=== PATIENT | female | born 1960 | race Caucasian/White ===

== ENCOUNTER 2024-12-05 14:36 | Outpatient (OUT) | payer OTHER, SELFPAY ==
--- OUTSIDE RECORDS SUMMARY | 2024-11-22 11:30 | XMS_ITS | Encounter Summary ---
Author Organization [facility] tem Address [id number] [address] [place] [address] Care Team Providers Care Vocational Nurse Name Role Phone Shirin Tellez Primary Care Provider Reason for Visit * Reason Comments Fatigue Onset two weeks ago daily diarrhea, rash on chest, interment pain in lower right abdominal wraps around the best, some nausea but no vomiting. Encounter Details Date Type Department Care Team (Late st Contact Info) Description 11/22/2024 11:30 AM EDT [facility] [address] [place] [address] [address] [place] [address] Kaveh Merrill APRN-CNP [address] [place] [phone] Intrinsic atopic dermatitis (Primary Dx); Lightheaded; Right lower quadrant abdominal pain; Diarrhea, unspecified type Social History Tobacco Use Types Packs/Day Years Used Date Smoking Tobacco: Never Smokeless Tobacco: Never Alcohol Use Standard Drinks/Week Comments Not Currently 0 (1 standard drink = 0.6 oz pur e alcohol) AUDIT-C Answer Date Recorded Frequency of Alcohol Consumption Monthly or less 01/08/2020 Average Number of Drinks Not on file 020 Frequency of Binge Drinking Less than monthly PHQ-2 Answer Date Recorded Total Score 0 11/22/2024 PRAPARE - Transportation Answer Date Re corded In the past 12 months, has l ack of transportation kept you from medical appointments or from getting medications? No 12/19 In the past 12 months, has l ack of transportation kept you from meetings, work, or from getting things needed for daily living? No 01/05/2023 Housing Instability Answer Date Recorde d Are you worried or concerned that in the next two months you may not have stable housing that you own, rent or stay in as a part of a household? No 01/05/2023 Childcare Answer Date Recorded Childcare Unknown 11/30/2018 Employment Answer Date Recorded Employment Unknown 11/30/2018 Hunger Screening Answer Date Recorded Within the past 12 months we worried whether our food would run out before we got money to buy more. Never True 11/22/2024 Within the past 12 months th e food we bought just didn't last and we didn't have money to get more. Never True 11/22/2024 Purpose - Life Answer Date Recorded Purpose and direction in life Unknown Comments No Sex and Gender Information Value Date Recorded Sex Assigned at Not on file Legal Sex Female 9:59 PM EDT Gender Identity Not on file Sexual Orientation Not on file documented as of this encounter Last Filed Vital Signs Vital Sign Reading Time Taken Comments Blood Pressure 116/80 11/22/2024 11:28 AM EDT Pulse 75 11/22/2024 11:28 AM EDT Temperature 37 C (98.6 F) 11/22/2024 11:28 AM EDT Respiratory Rate - - Oxygen Saturation 97% 11/22/2024 11:28 AM EDT Inhaled Oxygen Concentration - - Weight 69.4 kg (153 lb) 11/22/2024 11:28 AM EDT Height 157.5 cm (5' 2.01 ) 11/22/2024 11:28 AM E DT Body Mass Index 27.98 11/22/2024 11:28 AM EDT documented in this encounter Functional Status * Over the last 2 weeks, how often have you been bothered by any of the following problems? Question Answer Date of Assessment Author Feeling nervous, anxious, or on edge 0 11/22/2024 11:29 AM EDT Jaiden Moore CMA Not being able to stop or control worrying 0 11/22/2024 11:29 AM EDT Jaiden Moore CMA documented as of this encounter Progress Notes * Kaveh Merrill APRN-DIVISION CHIEF - 11/22/2024 11:30 AM EDT Images from the original note were not included. [facility] [address] [facility] [phone] Patient: Verito Montes Date of : 1960 Encounter Date: 11/22/2024 History of Present Illness: The patient is a 64 y.o. female, patient, and is here for Chief Complaint Patient presents with Fatigue Onset two weeks ago daily diarrhea, rash on chest, interment pain in lower right abdominal wraps around the best, some nausea but no vomiting. . Patient presents to the office today for a rash. She is an established patient of my colleague Shirin Tellez. She has a rash on her chest area. Symptoms started yesterday. She has been using a tanning salon, last use 2 days ago. Denies any known exposures to anything. The rash does not really itchmuch.She has also had diarrhea for two weeks and pain in her right lower quadrant area Which is improving overall. She is also having lightheadedness that comes and go. This has also gone on for a couple of weeks now. Symptoms only last for a few seconds and then resolve. She has never had this. She is also having shortness of breath. She does have asthma. She is on Vesicare which is new, mobic and Cymbalta are new. She has been on these for one year now. Fatigue Associated symptoms include abdominal pain, fatigue and a rash (Chest area). Pertinent negatives include no arthralgias, chest pain, chills, coughing, fever, numbness, sore throat or vomiting. Past Medical, Family, and Social History Update: The following portions of the patient's history were reviewed and updated as appropriate: allergies, current medications, past family history, past medical history, past social history, past surgicalhistory and problem list. Past Medical History: Diagnosis Date Asthma Cataract Cervical cancer (CMS-HCC) Constipation 06/04/2016 COVID-19 Frequency of micturition 03/29/2018 Microcytic anemia 06/04/2016 Microscopic hematuria 03/29/2018 Thalassemia 02/03/2018 Uterine cancer ([facility]) Past Surgical History: Procedure Laterality Date CATARACT EXTRACTION 2012 COLONOSCOPY 2011&2013 COLONOSCOPY POLYPECTOMY N/A 11/11/2021 Performed by Jason Coto MD at [facility] ENDOSCOPY DECOMPRESSION FASCIOTOMY LEG EGD with biospies N/A 05/05/2018 Performed by Jason Coto MD at [facility] ENDOSCOPY HYSTERECTOMY 2001 DC REMOVAL OF OVARY(S) 2002 TOTAL ABDOMINAL HYSTERECTOMY W/ BILATERAL SALPINGOOPHORECTOMY Current Outpatient Medications Medication Sig Dispense Refill albuterol (PROVENTIL HFA;VENTOLIN HFA) 90 mcg/actuation inhaler Inhale 2 puffs every 6 (six) hours as needed for wheezing. 18 g 11 ascorbic acid, vitamin C, (VITAMIN C) 250 mg tablet Take 2 tablets (500 mg total) by mouth in the morning. CALCIUM CITRATE ORAL Take by mouth. cranberry 400 mg capsule Take 1 capsule (400 mg total) by mouth in the morning. DULoxetine (CYMBALTA) 20 mg capsule Take one capsule by mouth once in the morning 90 capsule 1 estradioL (ESTRACE) 1 mg tablet TAKE 1 TABLET BY MOUTH EVERY MORNING 90 tablet 3 folic acid (FOLVITE) 1 mg tablet Take 800 mcg by mouth in the morning. magnesium oxide (MAG-OX) 400 mg tablet Take 1 tablet (400 mg total) by mouth in the morning. meloxicam (MOBIC) 7.5 mg tablet Take 1 tablet (7.5 mg total) by mouth in the morning. 90 tablet 1 multivit-min/iron/folic/lutein (CENTRUM SILVER WOMEN ORAL) Take by mouth. polyethylene glycol (GLYCOLAX) 17 gram/dose powder Take 17 g by mouth in the morning. 510 g 2 solifenacin (VESICARE) 5 mg tablet Take 1 tablet (5 mg total) by mouth in the morning. 90 tablet 3 tiZANidine (ZANAFLEX) 2 mg tablet One tab at 8:00 p.m.each night 90 tablet 1 triamcinolone (KENALOG) 0.1 % cream Apply 1 Application topically in the morning and 1 Application before bedtime. 80 g 1 No current facility-administered medications for this visit. (All medications reviewed and updated by provider since last office visit or hospitalization) Allergies: Patient has no known allergies. Tobacco History: Social History Tobacco Use Smoking Status Never Smokeless Tobacco Never (If patient a smoker, smoking cessation counseling offered) Social History: Social History Substance and Sexual Activity Alcohol Use Not Currently Depression PHQ-2 Over the last 2 weeks, how often have you been bothered by any of the following problems: Little interest or pleasure in doing things: Not at all Feeling down, depressed, or hopeless: Not at all Total Score: 0 Fall Risk Assessment Screening Questions: Review of Systems: Review of Systems Constitutional: Positive for fatigue. Negative for chills and fever. HENT: Negative for ear pain and sore throat. Eyes: Negative for pain and visual disturbance. Respiratory: Positive for shortness of breath. Negative for cough. Cardiovascular: Negative for chest pain and palpitations. Gastrointestinal: Positive for abdominal pain and diarrhea. Negative for vomiting. Genitourinary: Negative for dysuria and hematuria. Musculoskeletal: Negative for arthralgias and back pain. Skin: Positive for rash (Chest area). Negative for color change. Neurological: Positive for dizziness and light-headedness. Negative for seizures, syncope and numbness. All other systems reviewed and are negative. Physical Exam: BP 116/80 (BP Site: Left Arm, BP Postition: Sitting, BP CUFF SIZE: M (9-13 inches)) Pulse 75 Temp 37 ??C (98.6 ??F) (Oral) Ht 157.5 cm (5' 2.01 ) Wt 69.4 kg (153 lb) SpO2 97% BMI 27.98 kg/m?? Physical Exam Vitals and nursing note reviewed. Constitutional: General: She is not in acute distress. Appearance: Normal appearance. She is not ill-appearing, toxic-appearing or diaphoretic. HENT: Head: Normocephalic and atraumatic. Nose: Nose normal. Eyes: General: Right eye: No discharge. Left eye: No discharge. Conjunctiva/sclera: Conjunctivae normal. Cardiovascular: Rate and Rhythm: Normal rate and regular rhythm. Pulses: Normal pulses. Heart sounds: Normal heart sounds. No murmur heard. No friction rub. Pulmonary: Effort: Pulmonary effort is normal. No respiratory distress. Breath sounds: Normal breath sounds. No stridor. No wheezing or rhonchi. Abdominal: General: Abdomen is flat. There is no distension. Palpations: Abdomen is soft. Tenderness: There is no abdominal tenderness. Musculoskeletal: General: Normal range of motion. Cervical back: Normal range of motion. Skin: General: Skin is warm and dry. Capillary Refill: Capillary refill takes less than 2 seconds. Comments: Erythematous macular rash Neurological: General: No focal deficit present. Mental Status: She is alert and oriented to person, place, and time. Psychiatric: Mood and Affect: Mood normal. Behavior: Behavior normal. Thought Content: Thought content normal. Judgment: Judgment normal. Assessment and Plan: 1. Intrinsic atopic dermatitis - triamcinolone (KENALOG) 0.1 % cream; Apply 1 Application topically in the morning and 1 Application before bedtime. Dispense: 80 g; Refill: 1 Patient had a lot of complaints today that are not really correlated to each other. Main goal of the appointment was the rash on her chest area. I am going to treat this with triamcinolone cream as prescribed. If it does not improve advised her to please let me know. In regards to the lightheadedness abdominal pain, diarrhea, the shortness breath, will check some labs along with a urinalysis and call with results. Otherwise I recommend following up with her PCP of the symptoms do not improve. 2. Lightheaded - CBC auto differential - Comprehensive metabolic panel - Vitamin D 25 hydroxy - Vitamin B12 - Iron and TIBC - Urinalysis (clean catch); Future 3. Right lower quadrant abdominal pain - CBC auto differential - Comprehensive metabolic panel - Vitamin D 25 hydroxy - Vitamin B12 - Iron and TIBC - Urinalysis (clean catch); Future 4. Diarrhea, unspecified type - CBC auto differential - Comprehensive metabolic panel - Vitamin D 25 hydroxy - Vitamin B12 - Iron and TIBC Body mass index is 27.98 kg/m??. Patient noted to have elevated BMI and the following intervention(s) were applied encouragement to exercise and prescribed diet education. Follow-up: Patient verbalized understanding of POC/instructions at this time and denies any questions. This note was made utilizing M*Modal dictation. Although every attempt was made to limit grammatical errors, please excuse any errors in spelling or grammar. ERIKA Saenz APRN-CNP 11/22/24 1450 documented in this encounter Plan of Treatment Upcoming Encounters Date Type Department Care Team (Late st Contact Info) Description 12/12/2024 8:00 AM EDT Office Visit [facility] Department of [address] [place] [phone] Alisia Arriola PA [address] [facility] [address] [place] [address] 02/12/2025 8:15 AM EDT Office Visit [facility] [address] [place] [phone] Luz Montalvo MD [address] [place] [phone] 8:00 AM EST Office Visit [facility] [address] [place] [address] [address] [place] [phone] Shirin Tellez, HRIS MANAGER-DIVISION CHIEF [address] [place] [phone] Scheduled Orders Name Type Priority Associated Diagnoses Orde r Schedule Urinalysis (clean catch) Lab Routine Lightheaded Right lower quadrant abdominal pain 1 Occurrences starting 11/22/2024 until 11/22/2025 documented as of this encounter Procedures Procedure Name Priority Date/Time Associated Diagnosis Comments CBC WITH AUTO DIFFERENTIAL Routine 11/22/2024 11:55 AM EDT Lightheaded Right lower quadrant abdominal pain Diarrhea, unspecified type IRON AND TIBC Routine 11/22/2024 11:55 AM EDT Lightheaded Right lower quadrant abdominal pain Diarrhea, unspecified type VITAMIN D 25 HYDROXY Routine 11/22/2024 11:55 AM EDT Lightheaded Right lower quadrant abdominal pain Diarrhea, unspecified type VITAMIN B12 Routine 11/22/2024 11:55 AM EDT Lightheaded Right lower quadrant abdominal pain Diarrhea, unspecified type COMPREHENSIVE METABOLIC PANEL Routine 11/22/2024 11:55 AM EDT Lightheaded Right lower quadrant abdominal pain Diarrhea, unspecified type documented in this encounter Results * (ABNORMAL) Iron and TIBC (11/22/2024 11:55 AM EDT) IRON 57 50 - 170 ug/dL 11/22/2024 3:47 PM EDT [facility] TRANSFERRIN 151(L) 168 - 336 mg/dL 11/22/2024 3:47 PM EDT [facility] IRON BINDING 211(L) 250 - 425 ug/dL 11/22/2024 3:47 PM EDT [facility] IRON SATURATION 27 15 - 50 % SATURATION 11/22/2024 3:47 PM EDT [facility] Blood Venous blood / Unknown 11/22/2024 11:55 AM EDT 11/22/2024 11:56 AM EDT us Kaveh Merrill HRIS MANAGER-DIVISION CHIEF LAB BLOOD ORDERABLES Kathleen l Result [facility] [address] [place] [address], [place] [phone] * (ABNORMAL) Vitamin B12 (11/22/2024 11:55 AM EDT) VITAMIN B12 1,431(H) 180 - 914 pg/mL 11/22/2024 4:07 PM EDT [facility] Blood Venous blood / Unknown 11/22/2024 11:55 AM EDT 11/22/2024 11:56 AM EDT us Kaveh Merrill HRIS MANAGER-DIVISION CHIEF LAB BLOOD ORDERABLES Kathleen l Result [facility] [address] [place] [address], [place] [phone] * Vitamin D 25 hydroxy (11/22/2024 11:55 AM EDT) [facility] VITAMIN D 25 HYD TOT 41.1 30.0 - 100.0 ng/mL 11/22/2024 4:10 PM EDT [facility] Blood Venous blood / Unknown 11/22/2024 11:55 AM EDT 11/22/2024 11:56 AM EDT [facility] - 11/22/2024 4:10 PM EDT Vitamin D status 25 [place] Vitamin D Deficiency <20 ng/mL Insufficiency 20-29 ng/mL Sufficiency 30-100 ng/mL Toxicity >100 ng/mL NOTE: A pediatric reference range has not been established by the social science research assistant of this kit. The [place] [employer] recommends a Vitamin D level of = or >20ng/mL in infants and children. us Kaveh Merrill HRIS MANAGER-[facility] LAB BLOOD ORDERABLES Kathleen tam Result [facility] [address] [place] [address], * (ABNORMAL) Comprehensive metabolic panel (11/22/2024 11:55 AM EDT) [facility] SODIUM 141 134 - 146 mmol/L 11/22/2024 3:47 PM EDT [facility] POTASSIUM 3.4(L) 3.5 - 5.0 mmol/L 11/22/2024 3:47 PM EDT [facility] CHLORIDE 104 98 - 109 mmol/L 11/22/2024 3:47 PM EDT [facility] CARBON DIOXIDE 29 22 - 32 mmol/L 11/22/2024 3:47 PM EDT [facility] ANION GAP 8 5 - 15 mmol/L 11/22/2024 3:47 PM EDT [facility] BLOOD UREA NITROGEN 16 5 - 27 mg/dL 11/22/2024 3:47 PM EDT [facility] CREATININE 0.69 0.40 - 1.00 mg/dL 11/22/2024 3:47 PM EDT [facility] Comment:METHOD TRACEABLE TO IDCA STANDARD GLUCOSE 132(H) 65 - 99 mg/dL 11/22/2024 3:47 PM EDT [facility] CALCIUM 9.3 8.5 - 10.5 mg/dL 11/22/2024 3:47 PM EDT [facility] TOTAL PROTEIN 6.4 6.0 - 8.0 g/dL 11/22/2024 3:47 PM EDT [facility] ALBUMIN 4.2 3.2 - 5.3 g/dL 11/22/2024 3:47 PM EDT [facility] ALKALINE PHOSPHATASE 66 39 - 130 U/L 11/22/2024 3:47 PM EDT [facility] AST 21 <=41 U/L 11/22/2024 3:47 PM EDT [facility] ALT 17 <=31 U/L 11/22/2024 3:47 PM EDT [facility] BILIRUBIN,TOTAL 0.7 0.3 - 1.2 mg/dL 11/22/2024 3:47 PM EDT [facility] EGFR Non-Race Dependent >90 >=60 ml/min/1.7 3sq.m 11/22/2024 3:47 PM EDT [facility] Comment: Reported eGFR is based on the CKD-EPI 2020 equation that does not use a race coefficient. Blood Venous blood / Unknown 11/22/2024 11:55 AM EDT 11/22/2024 11:56 AM EDT us Kaveh Merrill HRIS MANAGER-DIVISION CHIEF LAB BLOOD ORDERABLES Kathleen l Result [facility] [address] [place] [address], [place] [phone] * (ABNORMAL) CBC auto differential (11/22/2024 11:55 AM EDT) [facility] Signature WBC 7.0 4 - 11 x10E9/L 11/22/2024 7:37 PM EDT [facility] RBC Count 5.22(H) 3.8 - 5.2 X10E12/L 11/22/2024 7:37 PM EDT [facility] Hemoglobin 10.7(L) 11.7 - 15.5 g/dL 11/22/2024 7:37 PM EDT [facility] Hematocrit 33.5(L) 35 - 47 % 11/22/2024 7:37 PM T [facility] MCV 64(L) 80 - 100 fL 11/22/2024 7:37 PM EDT [facility] MCH 20.5(L) 27 - 34 pg 11/22/2024 7:37 PM EDT [facility] MCHC 32.0 32 - 36 g/dL 11/22/2024 7:37 PM EDT [facility] RDW 16.3(H) 11.5 - 15 % 11/22/2024 7:37 PM EDT [facility] Platelet Count 252 150 - 450 X10E9/L 11/22/2024 7:37 PM EDT [facility] MPV 9.0 7 - 12 fL 11/22/2024 7:37 PM EDT [facility] Neutrophils Relative 60.1 % 11/22/2024 7:37 PM EDT [facility] Comment:This is an appended report. These results have been appended to a previously preliminary verified report. Lymphocytes Relative 30.0 % 11/22/2024 7:37 PM EDT [facility] Comment:This is an appended report. These results have been appended to a previously preliminary verified report. Monocytes Relative 8.2 % 11/22/2024 7:37 PM EDT [facility] Comment:This is an appended report. These results have been appended to a previously preliminary verified report. Eosinophils Relative 1.3 % 11/22/2024 7:37 PM T [facility] Comment:This is an appended report. These results have been appended to a previously preliminary verified report. Basophils Relative 0.4 % 11/22/2024 7:37 PM [facility] Comment:This is an appended report. These results have been appended to a previously preliminary verified report. Neutrophils Absolute (A) 4.2 1.5 - 6.6 10*3/uL 11/22/2024 7:37 PM [facility] Comment:This is an appended report. These results have been appended to a previously preliminary verified report. Lymphocytes Absolute 2.1 1.0 - 3.5 10*3/uL 11/22/2024 7:37 PM [facility] Comment:This is an appended report. These results have been appended to a previously preliminary verified report. Monocytes Absolute 0.6 0.0 - 0.9 10*3/uL 11/22/2024 7:37 PM [facility] Comment:This is an appended report. These results have been appended to a previously preliminary verified report. Eosinophils Absolute 0.1 0.0 - 0.4 10*3/uL 11/22/2024 7:37 PM [facility] Comment:This is an appended report. These results have been appended to a previously preliminary verified report. Basophils Absolute 0.0 0.0 - 0.2 10*3/uL 11/22/2024 7:37 PM [facility] Comment:This is an appended report. These results have been appended to a previously preliminary verified report. RBC Fragments 1+ 11/22/2024 7:37 PM [facility] Comment:This is an appended report. These results have been appended to a previously preliminary verified report. Elliptocytes 1+ 11/22/2024 7:37 PM [facility] Comment:This is an appended report. These results have been appended to a previously preliminary verified report. Differential Type AUTOMATED DIFFERENTIAL 11/22/2024 7:37 PM [facility] Comment:This is an appended report. These results have been appended to a previously preliminary verified report. Blood Venous blood / Unknown 11/22/2024 11:55 AM EDT 11/22/2024 11:56 AM EDT us Kaveh Merrill APRN-MOHINDER LAB BLOOD ORDERABLES Kathleen l Result [facility] [address] [place] [address], [place] [phone] documented in this encounter Visit Diagnoses Diagnosis Intrinsic atopic dermatitis- Primary Lightheaded Dizziness and giddiness Right lower quadrant abdominal pain Diarrhea, unspecified type documented in this encounter Additional Health Concerns Assessment Noted Time PHQ-9 Depression Total Score: 0 11/23/19 25 11:29 AM EDT A Body Mass Index follow-up plan has been documented for the patient 11/22/2024 2:50 PM EDT documented as of this encounter Care Teams Vocational Nurse Relationship Specialty Start Date End Date Shirin Tellez APRN-CNP [address] [place] [address] PCP - General Family Medicine 06/17/20 documented as of this encounter
--- OUTSIDE RECORDS SUMMARY | 2024-12-05 14:45 | XMS_ITS | Clinical Summary ---
Author Organization [facility] Address [address] [place] [address] [address] Prov[address] Care [address] Freight Brake Coupler Name Role Phone Unavailable Primary Care Provider Unavailabl e Social History Tobacco Use Types Packs/Day Years Used Date Smoking Tobacco: Never Assessed Comments Unknown Sex and Gender Information Value Date Recorded Sex Assigned at Not on file Legal Sex Female 9:54 PM EDT Gender Identity Not on file Sexual Orientation Not on file Plan of Treatment Not on file
--- OUTSIDE RECORDS SUMMARY | 2024-12-05 14:45 | XMS_ITS | Encounter Summary ---
Author Organization [employer] s tem Address [id number] [address] [place] [address] Care Team Providers Care Confectionery Laboratory Manager Name Role Phone Shirin Tellez APRN-GAS LEAK INSPECTOR HELPER Primary Care Provider Encounter Details Date Type Department Care Team (Latest Contact Info) Description 11/22/2024 Travel Social History Tobacco Use Types Packs/Day Years [...] on file documented as of this encounter Functional Status * Over the last 2 weeks, how often have you been bothered by any of the following problems? Question Answer Date of Assessment Author Feeling nervous, anxious, or on edge 0 11/22/2024 11:29 AM EDT Jaiden Moore CMA Not being able to stop or control worrying 0 11/22/2024 11:29 AM EDT Jaiden Moore CMA documented as of this encounter Plan of Treatment Upcoming Encounters Date Type Department Care Team (Late st Contact Info) Description 12/12/2024 8:00 AM EDT Office Visit [facility] Department of [address] [phone] Alisia Arriola PA [address] [place], [place] [phone] 02/12/2025 8:15 AM EDT Office Visit [facility] [address] [place] [phone] Luz Montalvo MD [address] [place] [address] 2025 8:00 AM EST Office Visit [facility] [address] [place] [address] [address] [place] [phone] Shirin Tellez, AMALGAMATOR-GAS LEAK INSPECTOR HELPER [address] [place] [address] documented as of this encounter Visit Diagnoses Not on filedocumented in this encounter Additional Health Concerns Assessment Noted Time PHQ-9 Depression Total Score: 0 11/23/19 25 11:29 AM EDT A Body Mass Index follow-up plan has been documented for the patient 11/22/2024 2:50 PM EDT documented as of this encounter Care Teams Confectionery Laboratory Manager Relationship Specialty Start Date End Date Shirin Tellez, AMALGAMATOR-GAS LEAK INSPECTOR HELPER [address] [place] [address] PCP - General Family Medicine 06/17/20 documented as of this encounter
--- OUTSIDE RECORDS SUMMARY | 2024-12-05 14:45 | XMS_ITS | Clinical Summary ---
Author Organization [employer] tem Address [facility] [place]-[id number] [address] [place] [address] Care Team Providers Care Loader Technician Name Role Phone Shirin Tellez APRN-INDUSTRIAL RECRUITER Primary Care Provider Allergies No known active allergies Medications folic acid (FOLVITE) 1 mg tablet Take 800 mcg by mouth in the morning. Active CALCIUM CITRATE ORAL Take by mouth. Activ e magnesium oxide (MAG-OX) 400 mg tablet Take 1 tablet (400 mg total) by mouth in the morning. Active cranberry 400 mg capsule Take 1 capsule (400 mg total) by mouth in the morning. Active multivit-min/iro n/folic/lutein (CENTRUM SILVER WOMEN ORAL) Take by mouth. Act pedro ascorbic acid, vitamin C, (VITAMIN C) 250 mg tablet Take 2 tablets (500 mg total) by mouth in the morning. Active polyethylene glycol (GLYCOLAX) 17 gram/dose powderIndication s:Constipation, unspecified constipation type Take 17 g by mouth in the morning. 510 g 2 3 Active solifenacin (VESICARE) 5 mg tabletIndication s:Urgency incontinence Take 1 tablet (5 mg total) by mouth in the morning. 90 tablet 3 4 Active albuterol (PROVENTIL HFA;VENTOLIN HFA) 90 mcg/actuation inhalerIndicatio ns:Mild intermittent asthma without complication Inhale 2 puffs every 6 (six) hours as needed for wheezing. 18 g 11 4 Active estradioL (ESTRACE) 1 mg tablet TAKE 1 TABLET BY MOUTH EVERY MORNING 90 tablet 3 5 Active meloxicam (MOBIC) 7.5 mg tabletIndication s:Fibromyalgia Take 1 tablet (7.5 mg total) by mouth in the morning. 90 tablet 1 5 Active tiZANidine (ZANAFLEX) 2 mg tabletIndication s:Fibromyalgia One tab at 8:00 p.m.each night 90 tablet 1 5 Active DULoxetine (CYMBALTA) 20 mg capsuleIndicatio ns:Fibromyalgia Take one capsule by mouth once in the morning 90 capsule 1 5 Active triamcinolone (KENALOG) 0.1 % creamIndications :Intrinsic atopic dermatitis Apply 1 Application topically in the morning and 1 Application before bedtime. 80 g 1 5 Active Active Problems Problem Noted Date Diagnosed Date History of 2019 novel coronavirus disease (COVID -19) 06/17/2020 Beta thalassemia trait 04/26/2018 Thalassemia 02/03/2018 Microcytic anemia 06/04/2016 Asthma 06/04/2016 Encounters Date Type Department Care Team Description 11/22/2024 11:30 AM EDT Office Visit [facility] [place] [phone] Kaveh Merrill, CASH CONTROLLER-INDUSTRIAL RECRUITER Intrinsic atopic dermatitis (Primary Dx); Lightheaded; Right lower quadrant abdominal pain; Diarrhea, unspecified type 11/22/2024 Travel 09/25/2024 11:31 AM EDT - 09/25/2024 11:59 PM EDT Hospital Encounter [facility] [address] [place] [address] Visit for screening mammogram Discharge Disposition: Home 09/25/2024 Travel 09/12/2024 Orders Only [facility]Gynecolo gy [address] [place] [address] Ness Kruger, NATA Visit for screening mammogram (Primary Dx) from Last 3 Months Immunizations Immunization Administration Dates Next Due COVID-19, mRNA, LNP-S, PF, 1 00mcg/0.5mL Dose 11/06/2020,10/09/2020 H1N1 Inj 07/01/2009 Hepatitis B 11/07/2002,06/09/2002,05/11/2002 Influenza (IM) Preservative Free 03/24/2011 PPD Test 05/13/2018,05/02/2018,06/15/2017 Tdap 05/11/2002 Tetanus 12/02/2011 Family History Medical History Relation Name Comments Asthma Daughter Ness Montes No Known Problems Father Cancer Maternal Aunt 1 Caitlin Mckenzie Cervical cancer Maternal Aunt 1 Caitlin Mckenzie Colon cancer Maternal Aunt 1 Caitlin Mckenzie Cervical cancer Maternal Aunt 2 Hay Cancer Maternal Uncle Max Lumbardo Colon cancer Maternal Uncle Max Lumbardo Prostate cancer Maternal Uncle Max Lumbardo Hypertension Mother a-fib Stroke Mother a-fib Breast cancer Niece had bilateral mastectomy Cancer Paternal Aunt Diabetes Sister Jazz[employer] Champion Hypertension Sister Jazz[employer] Champion Perry Breast Cancer Neg Hx Brain cancer Neg Hx Breast Ca Additional Onset Neg Hx Endometrial cancer Neg Hx Kidney cancer Neg Hx Other Neg Hx thalassemia Ovarian cancer Neg Hx Pancreatic cancer Neg Hx Rectal cancer Neg Hx Stomach cancer Neg Hx Uterine cancer Neg Hx Relation Name Status Comments Brother a-fib Alive Daughter Ness Montes Father Maternal Aunt 1 Caitlin Mckenzie Alive Maternal Aunt 2 Hay Maternal Uncle Max Lumbardo Mother a-fib Niece Alive Paternal Aunt Sister Jazz[employer] Champion Alive Social History Tobacco Use Types Packs/Day Years [...] on file Sexual Orientation Not on file Last Filed Vital Signs Vital Sign Reading Time Taken Comments Blood Pressure 116/80 11/22/2024 11:28 AM EDT Pulse 75 11/22/2024 11:28 AM EDT Temperature 37 C (98.6 F) 11/22/2024 11:28 AM EDT Respiratory Rate 18 07/13/2024 8:27 AM EST Oxygen Saturation 97% 11/22/2024 11:28 AM EDT Inhaled Oxygen Concentration - - Weight 69.4 kg (153 lb) 11/22/2024 11:28 AM EDT Height 157.5 cm (5' 2.01 ) 11/22/2024 11:28 AM E DT Body Mass Index 27.98 11/22/2024 11:28 AM EDT Plan of Treatment Upcoming Encounters Date Type Department Care Team (Late st Contact Info) Description 12/12/2024 8:00 AM EDT Office Visit [facility] Department of [address] [phone] Alisia Arriola PA [address] [place] [address] [address] [place] [phone] 02/12/2025 8:15 AM EDT Office Visit [facility] [address] [place] [phone] Luz Montalvo MD [address] [place] [address] [place] [address] 2025 8:00 AM EST Office Visit [facility] [address] [facility] [address] [place] [phone] Shirin Tellez, CASH CONTROLLER-INDUSTRIAL RECRUITER [address] [place] [address] Health Maintenance Due Date Last Done Comments DTaP,Tdap and Td Vaccines (2 - Td or Tdap) 05/11/2012 05/11/2002 COVID-19 Vaccine (2023-2 5 season) 2024 11/06/2020, 10/09/2020 Fall Risk Screening 2024 Colon Cancer Screening 3 Yea r Cologuard 2025 2022, 06/16/2018 Mammogram 09/25/2025 09/25/2024, 08/19, 05/23/2022, Additional history exists Adult BMI Follow Up Plan 11/22/2025 11/22/2024 Adult BMI Screening 11/22/2025 11/22/2024 Depression Screening 11/22/2025 11/22/2024 Tobacco Screening 11/22/2025 11/22/2024 Influenza Vaccine Discontinued 03/24/2011, 07/01/2009 Pap Smear Discontinued 05/10/2023, 04/21, 2021, Additional history exists Zoster (Shingles) Vaccine Discontinued Medical Devices Not on file Procedures Procedure Name Priority Date/Time Associated Diagnosis Comments IRON AND TIBC Routine 11/22/2024 11:55 AM [...] lower quadrant abdominal pain Diarrhea, unspecified type CBC WITH AUTO DIFFERENTIAL Routine 11/22/2024 11:55 AM EDT Lightheaded Right lower quadrant abdominal pain Diarrhea, unspecified type MAMM SCREENING BILATERAL W CAD Routine 09/25/2024 11:55 AM EDT Visit for screening mammogram PAP SMEAR Routine 05/10/2023 8:19 AM EST Encounter for gynecological examination HM COLOGUARD Routine 06/16/2018 from Last 3 Months or Most Recently Relevant to Health Maintenance Results * (ABNORMAL) CBC auto differential (11/22/2024 11:55 AM EDT) WBC 7.0 4 - 11 x10E9/L 11/22/2024 7:37 PM EDT [facility] RBC Count 5.22(H) 3.8 - 5.2 X10E12/L 11/22/2024 7:37 [address] ED[address] [facility] Hemoglobin 10.7(L) 11.7 - 15.5 g/dL 11/22/2024 7:37 [address] ED[address] [facility] Hematocrit 33.5(L) 35 - 47 % 11/22/2024 7:37 PM EDT [facility] MCV 64(L) 80 - 100 fL 11/22/2024 7:37 PM EDT [facility] MCH 20.5(L) 27 - 34 pg 11/22/2024 7:37 PM EDT [facility] MCHC 32.0 32 - 36 g/dL 11/22/2024 7:37 PM EDT [facility] RDW 16.3(H) 11.5 - 15 % 11/22/2024 7:37 PM EDT [facility] Platelet Count 252 150 - 450 X10E9/L 11/22/2024 7:[address] [facility] MPV 9.0 7 - 12 fL 11/22/2024 7:[address] [facility] Neutrophils Relative 60.1 % 11/22/2024 7:[address] [facility] Comment:This is an appended report. These results have been appended to a previously preliminary verified report. Lymphocytes Relative 30.0 % 11/22/2024 7:[address] [facility] Comment:This is an appended report. These results have been appended to a previously preliminary verified report. Monocytes Relative 8.2 % 11/22/2024 7:[address] [facility] Comment:This is an appended report. These results have been appended to a previously preliminary verified report. Eosinophils Relative 1.3 % 11/22/2024 7:[address] [facility] Comment:This is an appended report. These results have been appended to a previously preliminary verified report. Basophils Relative 0.4 % 11/22/2024 7:[address] [facility] Comment:This is an appended report. These results have been appended to a previously preliminary verified report. Neutrophils Absolute (A) 4.2 1.5 - 6.6 10*3/uL 11/22/2024 7:[address] [facility] Comment:This is an appended report. These results have been appended to a previously preliminary verified report. Lymphocytes Absolute 2.1 1.0 - 3.5 10*3/uL 11/22/2024 7:[address] [facility] Comment:This is an appended report. These results have been appended to a previously preliminary verified report. Monocytes Absolute 0.6 0.0 - 0.9 10*3/uL 11/22/2024 7:[address] [facility] Comment:This is an appended report. These results have been appended to a previously preliminary verified report. Eosinophils Absolute 0.1 0.0 - 0.4 10*3/uL 11/22/2024 7:[address] [facility] Comment:This is an appended report. These results have been appended to a previously preliminary verified report. Basophils Absolute 0.0 0.0 - 0.2 10*3/uL 11/22/2024 7:37 PM EDT [facility] Comment:This is an appended report. These results have been appended to a previously preliminary verified report. RBC Fragments 1+ 11/22/2024 7:37 PM EDT [facility] Comment:This is an appended report. These results have been appended to a previously preliminary verified report. Elliptocytes 1+ 11/22/2024 7:37 PM EDT [facility] Comment:This is an appended report. These results have been appended to a previously preliminary verified report. Differential Type AUTOMATED DIFFERENTIAL 11/22/2024 7:37 PM EDT [facility] Comment:This is an appended report. These results have been appended to a previously preliminary verified report. Blood Venous blood / Unknown 11/22/2024 11:55 AM EDT 11/22/2024 11:56 AM EDT us Kaveh Merrill CASH CONTROLLER-INDUSTRIAL RECRUITER LAB BLOOD ORDERABLES Kathleen l Result [facility] [address] [place] [address], * (ABNORMAL) Iron and TIBC (11/22/2024 11:55 AM EDT) IRON 57 50 - 170 ug/dL 11/22/2024 3:47 PM EDT [facility] TRANSFERRIN 151(L) 168 - 336 mg/dL 11/22/2024 3:47 PM EDT [facility] IRON BINDING 211(L) 250 - 425 ug/dL 11/22/2024 3:47 PM EDT [facility] IRON SATURATION 27 15 - 50 % SATURATION 11/22/2024 3:47 PM EDT [facility] Blood Venous blood / Unknown 11/22/2024 11:55 AM EDT 11/22/2024 11:56 AM EDT Kaveh Merrill [facility] LAB BLOOD ORDERABLES Kathleen l Result Performing Organization Address City/[facility]/ZIP Co de Phone Number [facility] [address] [place] [address], [place] [phone] * Vitamin D 25 hydroxy (11/22/2024 11:55 AM EDT) VITAMIN D 25 HYD TOT 41.1 30.0 - 100.0 ng/mL 11/22/2024 4:10 PM EDT [facility] Blood Venous blood / Unknown 11/22/2024 11:55 AM EDT 11/22/2024 11:56 AM EDT Narrative [facility] - 11/22/2024 4:10 PM EDT Vitamin D status 25 [place] Vitamin D Deficiency <20 ng/mL Insufficiency 20-29 ng/mL Sufficiency 30-100 ng/mL Toxicity >100 ng/mL NOTE: A pediatric reference range has not been established by the manager knowledge of this kit. The [place] [employer] recommends a Vitamin D level of = or >20ng/mL in infants and children. us Kaveh Merrill [facility] LAB BLOOD ORDERABLES Kathleen l Result Performing Organization Address City/[facility]/ZIP Co de Phone Number [facility] [address] [place] [address], [place] [phone] * (ABNORMAL) Vitamin B12 (11/22/2024 11:55 AM EDT) VITAMIN B12 1,431(H) 180 - 914 pg/mL 11/22/2024 4:07 PM EDT [facility] Blood Venous blood / Unknown 11/22/2024 11:55 AM EDT 11/22/2024 11:56 AM EDT us Kaveh Mas Garfield CASH CONTROLLER-INDUSTRIAL RECRUITER LAB BLOOD ORDERABLES Kathleen tam Result [facility] [address] [place] [address], [place] [phone] * (ABNORMAL) Comprehensive metabolic panel (11/22/2024 11:55 AM EDT) SODIUM 141 134 - 146 mmol/L 11/22/2024 3:47 PM EDT [facility] POTASSIUM 3.4(L) 3.5 - 5.0 mmol/L 11/22/2024 3:47 [address] [facility] CHLORIDE 104 98 - 109 mmol/L 11/22/2024 3:47 PM EDT [facility] CARBON DIOXIDE 29 22 - 32 mmol/L 11/22/2024 3:47 PM EDT [facility] ANION GAP 8 5 - 15 mmol/L 11/22/2024 3:47 PM EDT [facility] BLOOD UREA NITROGEN 16 5 - 27 mg/dL 11/22/2024 3:47 PM EDT [facility] CREATININE 0.69 0.40 - 1.00 mg/dL 11/22/2024 3:47 PM EDT [facility] Comment:METHOD TRACEABLE TO IDMS STANDARD GLUCOSE 132(H) 65 - 99 mg/dL 11/22/2024 3:47 PM EDT [facility] CALCIUM 9.3 8.5 - 10.5 mg/dL 11/22/2024 3:47 PM EDT [facility] TOTAL PROTEIN 6.4 6.0 - 8.0 g/dL 11/22/2024 3:47 [address] [facility] ALBUMIN 4.2 3.2 - 5.3 g/dL 11/22/2024 3:47 PM EDT [facility] ALKALINE PHOSPHATASE 66 39 - 130 U/L 11/22/2024 3:47 PM EDT [facility] AST 21 <=41 U/L 11/22/2024 3:47 PM EDT [facility] ALT 17 <=31 U/L 11/22/2024 3:47 [address] EDT [facility] BILIRUBIN,TOTAL 0.7 0.3 - 1.2 mg/dL 11/22/2024 3:47 PM EDT [facility] EGFR Non-Race Dependent >90 >=60 ml/min/1.7 3sq.m 11/22/2024 3:47 PM EDT [facility] Comment: Reported eGFR is based on the CKD-EPI 2020 equation that does not use a race coefficient. Blood Venous blood / Unknown 11/22/2024 11:55 AM EDT 11/22/2024 11:56 AM EDT us Kaveh Merrill CASH CONTROLLER-INDUSTRIAL RECRUITER LAB BLOOD ORDERABLES Kathleen l Result [facility] [address] [place] [address], * Mammography screening bilateral with CAD (09/25/2024 11:55 AM EDT) Anatomical Region Laterality Modality Breast Bilateral Mammography 09/28/2024 8:34 AM EDT Narrative 09/28/2024 8:35 AM EDT SEVERO MONTES 1960 [id number] EXAM: MAMM SCREENING BILATERAL W CAD, 09/25/2024 11:33 AM CLINICAL INDICATIONS: Screening, Visit for screening mammogram COMPARISON: 09/04/2023 and older studies. TECHNIQUE: Bilateral digital tomosynthesis MLO and CC views of the breasts were obtained, with creation of synthetic 2D views. Computer aided detection was utilized. FINDINGS: There are scattered areas of fibroglandular density. There are no suspicious masses, calcifications, or areas of architectural distortion. IMPRESSION: No mammographic evidence of malignancy. BI-RADS: BI-RADS 1 - Negative RECOMMENDATION: Routine screening mammogram in 1 year. RISK ASSESSMENT: TC Lifetime risk: 7.31%. The patient's reported personal and family medical history was used calculate their Tyrer-Cuzick lifetime risk of malignancy. Scores less than 20% are not considered high risk per ACR guidelines and patient should continue with the above recommendation. Additionally, this patient's reported personal and/or family history of cancer indicates they may benefit from a genetic counseling consultation and possible genetic testing. If patient has not already completed this evaluation, please consider placing a referral to [employer] via [employer] or . For questions regarding this, please call [phone]. The patient was offered information on genetic counseling at the time of exam. Finalized by Devyn Lombardi MD on 09/28/2024 8:35 AM 1 b MAMM 1 YR FDA Accredited Performing Facility: [facility] - [facility]amm[facility] [address] [address] Procedure Note Devyn Lombardi MD - 09/28/2024 SEVERO CRISTIAN MONTES 1960 [id number] EXAM: MAMM SCREENING BILATERAL W CAD, 09/25/2024 11:33 AM CLINICAL INDICATIONS: Screening, Visit for screening mammogram COMPARISON: 09/04/2023 and older studies. TECHNIQUE: Bilateral digital tomosynthesis MLO and CC views of the breastswere obtained, with creation of synthetic 2D views. Computer aideddetection was utilized. FINDINGS: There are scattered areas of fibroglandular density. There are no suspicious masses, calcifications, or areas of architecturaldistortion. IMPRESSION: No mammographic evidence of malignancy. BI-RADS: BI-RADS 1 - Negative RECOMMENDATION: Routine screening mammogram in 1 year. RISK ASSESSMENT: TC Lifetime risk: 7.31%. The patient's reported personal and family medical history was usedcalculate their Tyrer-Cuzick lifetime risk of malignancy. Scores less than20% are not considered high risk per ACR guidelines and patient shouldcontinue with the above recommendation. Additionally, this patient's reported personal and/or family history ofcancer indicates they may benefit from a genetic counseling consultationand possible genetic testing. If patient has not already completed thisevaluation, please consider placing a referral to [facility] [employer] via [employer] or . For questions regarding this,please call [phone]. The patient was offered information on geneticcounseling at the time of exam. Finalized by Devyn Lombardi MD on 09/28/2024 8:35 AM 1 b MAMM 1 YR FDA Accredited Performing Facility: [facility] - [facility]ammography [address] [place] [address] [address] Sudhakar Khan MD IMG MAMMOGRAPHY ORDERABLES Fi nal Result * Pap Smear (05/10/2023 8:19 AM EST) 05/10/2023 8:19 AM EST 05/10/2023 8:19 AM EST Narrative COP[facility] - 05/17/2023 10:11 AM EST [facility] [address] [place] [address] Gynecologic Cytology Consultation Patient Name:SEVERO MONTES:1960 (Age: 63)Gender:FTaken:05/10/2023Reported:05/17/2023hysician(s):Sudhakar Khan M.D. ([phone])Copy To: Rec. #:[id number]: #[id number] Final Cytologic Interpretation ThinPrep Pap Test (Vaginal): Satisfactory for evaluation. NEGATIVE FOR INTRAEPITHELIAL LESION OR MALIGNANCY. [facility]/05/17/2023 Interpretation performed at [facility], [address] [place] [address], License number: [id number]. Electronically Signed Out By ANALY Merritt(ASCP) Date of Last Menstrual Period: (None Given) Other Clinical Conditions: Z01.419 Endoscopy Support Specialist exam wo/abn findings Hysterectomy Source of Specimen ThinPrep Pap Test (Vaginal) Thin Prep Pap (EMPLOYEE REPRESENTATIVE) Fee Code(s): G0145 Sudhakar Khan MD PATHOLOGY/CYTOLOGY ORDERABLES Final Result COPATH * IVORY (06/16/2018) Jason Coto MD HEALTH MAINTENANCE Final Result MANUALLY TRANSCRIBED RESULTS from Last 3 Months or Most Recently Relevant to Health Maintenance Insurance [employer] Advance Directives Documents on File Type Date Recorded 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
--- OUTSIDE RECORDS SUMMARY | 2024-12-05 14:45 | XMS_ITS | Encounter Summary ---
Author Organization [facility] [employer] Sys tem Address [id number] [address] [place] [address] Care Team Providers Care Supervisor Beam Department Name Role Phone Shirin Tellez APRN-MANAGER GAS Primary Care Provider Encounter Details Date Type Department Care Team (Late st Contact Info) Description 06/10/2023 Telephone [facility] [address] [place] [address] Fouzia Navarro RMA Social History Tobacco Use Types Packs/Day Years [...] PHQ-2 Answer Date Recorded Total Score 0 2023 PRAPARE - Transportation Answer Date Re corded [...] got money to buy more. Never True 06/08/2023 Within the past 12 months th e food we bought just didn't last and we didn't have money to get more. Never True 06/08/2023 Purpose - Life Answer Date Recorded Purpose and direction in life Unknown Comments No Sex and Gender Information Value Date Recorded Sex Assigned at Not on file Legal Sex Female 9:59 PM EDT Gender Identity Not on file Sexual Orientation Not on file documented as of this encounter Miscellaneous Notes * Telephone Encounter - TRUMAN Farr - 06/10/2023 9:52 AM EST Pt called in stating the Myrbetriq will cost $88 per month, and she just isn't able to afford that monthly. Patient said the Pharmacist told her that the Oxybutynin would be covered. She is asking if you would be able to have that called in. * Telephone Encounter - Luz White MD - 06/10/2023 9:52 AM EST Please let patient know I sent in prescription for VESIcare 5 mg daily. * Telephone Encounter - TRUMAN Farr - 06/10/2023 9:52 AM EST Pt informed documented in this encounter Plan of Treatment Upcoming Encounters Date Type Department Care Team (Late st Contact Info) Description 12/12/2024 8:00 AM EDT Office Visit [facility] Department of [address] [phone] Alisia Arriola PA [address] [place] [address] [place] [phone] 02/12/2025 8:15 AM EDT Office Visit [facility] [address] [place] [phone] Luz Montalvo MD [address] [place] [address] 2025 8:00 AM EST Office Visit [facility] [address] [place] [address] [address] [place] [phone] Shirin Tellez, JETTING MACHINE OPERATOR-MANAGER GAS [address] [place] [address] documented as of this encounter Visit Diagnoses Not on filedocumented in this encounter Additional Health Concerns Assessment Noted Time PHQ-9 Depression Total Score: 0 04/30/20 23 9:54 AM EST A Body Mass Index follow-up plan has been documented for the patient 2023 10:27 AM EST documented as of this encounter Care Teams Supervisor Beam Department Relationship Specialty Start Date End Date Shirin Tellez, JETTING MACHINE OPERATOR-MANAGER GAS [address] [place] [address] PCP - General Family Medicine 06/17/20 documented as of this encounter
--- OUTSIDE RECORDS SUMMARY | 2024-12-05 14:45 | XMS_ITS | Referral Summary ---
Author Organization [facility] Address [address] [place] [address] Care Team Providers Care Family And Consumer Science Professor Name Role Phone Unavailable Primary Care Provider [...]
--- OUTSIDE RECORDS SUMMARY | 2024-12-05 14:45 | XMS_ITS | Encounter Summary ---
Author Organization [facility] Address [facility] [id number] [address] [place] [address] Care Team Providers Care Sourcing Engineer Name Role Phone Shirin Tellez APRN-MOHINDER Primary Care Provider Reason for Visit * Reason Comments Med Refill Encounter Details Date Type Department Care Team (Late st Contact Info) Description 07/07/2024 Refill [facility] [address] [place] [phone] Alisia Arriola PA [address] [facility] [address] [place] [phone] Fibromyalgia Social History Tobacco Use Types Packs/Day Years [...] PHQ-2 Answer Date Recorded Total Score 0 05/01/2024 PRAPARE - Transportation Answer Date Re corded [...] got money to buy more. Never True 05/01/2024 Within the past 12 months th e food we bought just didn't last and we didn't have money to get more. Never True 05/01/2024 Purpose - Life Answer Date Recorded Purpose and direction in life Unknown Comments No Sex and Gender Information Value Date Recorded Sex Assigned at Not on file Legal Sex Female 9:59 PM EDT Gender Identity Not on file Sexual Orientation Not on file documented as of this encounter Plan of Treatment Upcoming Encounters Date Type Department Care Team (Late st Contact Info) Description 12/12/2024 8:00 AM EDT Office Visit [facility] Department of [address] [address] Alisia Arriola PA [address] [place] [phone] 02/12/2025 8:15 AM EDT Office Visit [facility] [address] [place] [phone] Luz Montalvo MD [address] [place] [address] 2025 8:00 AM EST Office Visit [facility] [address] [place] [address] [address] [place] [phone] Shirin Tellez, VIDEO TAPE DUPLICATOR-FLAG SIGNALMAN [address] [place], [place] [phone] documented as of this encounter Visit Diagnoses Diagnosis Fibromyalgia Unspecified myalgia and myositis documented in this encounter Additional Health Concerns Assessment Noted Time PHQ-9 Depression Total Score: 0 05/01/20 24 8:03 AM EST A Body Mass Index follow-up plan has been documented for the patient 05/01/2024 8:19 AM EST documented as of this encounter Care Teams Sourcing Engineer Relationship Specialty Start Date End Date Shirin Tellez, VIDEO TAPE DUPLICATOR-FLAG SIGNALMAN [facility] [place] [address] PCP - General Family Medicine 06/17/20 documented as of this encounter
--- OUTSIDE RECORDS SUMMARY | 2024-12-05 14:45 | XMS_ITS | Encounter Summary ---
Author Organization [facility] Sys tem Address [facility] [id number] [address] [place] [address] Care Team Providers Care Packaging Clerk Name Role Phone Shirin Tellez APRN-WEALTH MANAGEMENT ADVISOR Primary Care Provider Encounter Details Date Type Department Care Team ([facility] Contact Info) Description 06/25/2020 Orders Only [facility] [address] [place] [address] Niya Dugan, BINDU Cough; Healthcare maintenance Social History Tobacco Use Types Packs/Day Years Used Date Smoking Tobacco: Never Smokeless Tobacco: Never Alcohol Use Standard Drinks/Week Comments Not Currently 0 (1 standard drink = 0.6 oz pur e alcohol) occsional AUDIT-C Answer Date Recorded Frequency of Alcohol Consumption Monthly or less 01/08/2020 Average Number of Drinks Not on file 020 Frequency of Binge Drinking Less than monthly PHQ-2 Answer Date Recorded Total Score 0 06/17/2020 Childcare Answer Date Recorded Childcare Unknown 11/30/2018 Employment Answer Date Recorded Employment Unknown 11/30/2018 Comments No Sex and Gender Information Value Date Recorded Sex Assigned at Not on file Legal Sex Female 9:59 PM EDT Gender Identity Not on file Sexual Orientation Not on file COVID-19 Exposure Response Date Recorded In the last month, have you been in contact with someone who was confirmed or suspected to have Coronavirus / COVID-19? Yes 06/17/2020 10:38 AM EST documented as of this encounter Plan of Treatment Upcoming Encounters Date Type Department Care Team (Late Contact Info) Description 12/12/2024 8:00 AM EDT Office Visit [facility] Department of [facility] [address] [place] [address] [address] [place] [address] Alisia Arriola PA [address] [facility] [address] [place] [phone] 02/12/2025 8:15 AM EDT Office Visit [facility] [address] [place] [phone] Luz Montalvo MD [address] [place] [address] 2025 8:00 AM EST Office Visit [facility] [address] [place] [address] [address] [place] [phone] Shirin Tellez, PERSONNEL MONITOR-WEALTH MANAGEMENT ADVISOR [address] [place] [phone] documented as of this encounter Procedures Procedure Name Priority Date/Time Associated Diagnosis Comments XR CHEST 2 VWS Routine 06/18/2020 Cough CBC WITH AUTO DIFFERENTIAL Routine 06/18/2020 Cough LIPID PROFILE Routine 06/18/2020 Healthcare maintenance COMPREHENSIVE METABOLIC PANEL Routine 06/18/2020 Healthcare maintenance documented in this encounter Results * Comprehensive metabolic panel (06/18/2020) 06/18/2020 Shirin Tellez PERSONNEL MONITOR-WEALTH MANAGEMENT ADVISOR LAB BLOOD ORDERABLES F inal Result SUNQUEST * Lipid profile (06/18/2020) 06/18/2020 Shirin RUVALCABA LAB BLOOD ORDERABLES F inal Result Performing Organization Address City/[facility]/ZIP Co de Phone Number SUNQUEST * CBC auto differential (06/18/2020) 06/18/2020 Shirin RUVALCABA LAB BLOOD ORDERABLES F inal Result Performing Organization Address [facility] Co de Phone Number SUNQUEST * X-ray chest 2 views (06/18/2020) Anatomical Region Laterality Modality Body, Chest N/A Computed Radiogr aphy Shirin RUVALCABA IMG DIAGNOSTIC IMAGING ORDERABLES Final Result documented in this encounter Visit Diagnoses Diagnosis Cough Healthcare maintenance documented in this encounter Additional Health Concerns Infection Onset Date Last Indicated Resolved Time COVID-19 Rule-Out 03/06/2023 03/06/2023 03/06/2023 11:33 AM EDT COVID-19 Positive 03/06/2023 03/06/2023 03/27/2023 11:12 PM EDT Assessment Noted Time PHQ-9 Depression Total Score: 0 06/17/20 20 10:43 AM EST A Body Mass Index follow-up plan has been documented for the patient 06/17/2020 11:15 AM EST documented as of this encounter Care Teams Packaging Clerk Relationship Specialty Start Date End Date Shirin Tellez APRN-CNP [address] [place] [phone] PCP - General Family Medicine 06/17/20 documented as of this encounter
--- OUTSIDE RECORDS SUMMARY | 2024-12-05 14:45 | XMS_ITS | Encounter Summary ---
Author Organization [facility] Sys tem Address [id number] [address] [place] [address] Care Team Providers Care Petrol Tanker Driver Name Role Phone Shirin Tellez APRN-CEREAL POPPER Primary Care Provider Encounter Details Date Type Department Care Team (Late st Contact Info) Description 10/21/2021 Orders Only [facility] [address] [place] [address] External, Scanning Provider Social History Tobacco Use Types Packs/Day Years [...] PHQ-2 Answer Date Recorded Total Score 0 07/18/2021 Childcare Answer Date Recorded Childcare Unknown 11/30/2018 Employment Answer Date Recorded Employment Unknown 11/30/2018 Purpose - Life Answer Date Recorded Purpose and direction in life Unknown Comments No Sex and Gender Information Value Date Recorded Sex Assigned at Not on file Legal Sex Female 9:59 PM EDT Gender Identity Not on file Sexual Orientation Not on file COVID-19 Exposure Response Date Recorded In the last 10 days, have yo u been in contact with someone who was confirmed or suspected to have Coronavirus/COVID-19? No / Unsure 10/20/2021 7:15 AM EDT documented as of this encounter Plan of Treatment Upcoming Encounters Date Type Department Care Team (Late st Contact Info) Description 12/12/2024 8:00 AM EDT Office Visit [facility] Department of [address] [place] [address] Alisia Arriola PA [address] [facility] [address] [place] [address] 02/12/2025 8:15 AM EDT Office Visit [facility] [address] [place] [phone] Luz Montalvo MD [address] [place] [address] 2025 8:00 AM EST Office Visit [facility] [address] [place] [address] [address] [place] [phone] Shirin Tellez, MARINE EQUIPMENT PRESERVATION INSPECTOR-CEREAL POPPER [address] [place] [address] documented as of this encounter Procedures Procedure Name Priority Date/Time Associated Diagnosis Comments MULTIPLE LABS Routine 10/18/2021 documented in this encounter Results * Multiple labs (10/18/2021) 10/18/2021 us Scanning Provider External ME IM[facility] Final Result MANUALLY TRANSCRIBED RESULTS documented in this encounter Visit Diagnoses Not on filedocumented in this encounter Additional Health Concerns Infection Onset Date Last Indicated Resolved Time COVID-19 Rule-Out 03/06/2023 03/06/2023 03/06/2023 11:33 AM EDT COVID-19 Positive 03/06/2023 03/06/2023 03/27/2023 11:12 PM EDT Assessment Noted Time PHQ-9 Depression Total Score: 0 01/28/20 22 10:51 AM EST A Body Mass Index follow-up plan has been documented for the patient 07/31/2021 4:24 PM EST documented as of this encounter Care Teams Petrol Tanker Driver Relationship Specialty Start Date End Date Shirin Tellez, DEREK-CEREAL POPPER [address] [place] [address] PCP - General Family Medicine 06/17/20 documented as of this encounter
--- OUTSIDE RECORDS SUMMARY | 2024-12-05 14:45 | XMS_ITS | Encounter Summary ---
Author Organization [facility] Address [facility] [id number] [address] [place] [address] Care Team Providers Care Interactive Video Technician Name Role Phone Shirin Tellez APRN-MOHINDER Primary Care Provider Reason for Visit * Reason Comments Med Refill Encounter Details Date Type Department Care Team (Late st Contact Info) Description 10/17/2023 Refill [facility] [address] [place] [phone] Phoebe Viramontes MD M[facility] [address] [place] [phone] Social History Tobacco Use Types Packs/Day Years [...] PHQ-2 Answer Date Recorded Total Score 0 09/01/2023 PRAPARE - Transportation Answer Date Re corded [...] got money to buy more. Never True 07/27/2023 Within the past 12 months th e food we bought just didn't last and we didn't have money to get more. Never True 07/27/2023 Purpose - Life Answer Date Recorded Purpose [...] Office Visit [facility] Department of [address] [phone] Alisia Arriola PA [address] [place] [phone] 02/12/2025 8:15 AM EDT Office Visit [facility] [address] [place] [phone] Luz Montalvo MD [address] [place] [address] 2025 8:00 AM EST Office Visit [facility] [address] [place] [address] [address] [place] [address] Shirin Tellez, NARROW FABRICS WEAVER-BUSINESS EDITOR [address] [place], [place] [phone] documented as of this encounter Visit Diagnoses Not on filedocumented in this encounter Additional Health Concerns Assessment Noted Time PHQ-9 Depression Total Score: 0 09/01/19 24 2:50 PM EDT A Body Mass Index follow-up plan has been documented for the patient 07/27/2023 2:47 PM EST documented as of this encounter Care Teams Interactive Video Technician Relationship Specialty Start Date End Date Shirin Tellez, NARROW FABRICS WEAVER-BUSINESS EDITOR [facility] [place] [address] PCP - General Family Medicine 06/17/20 documented as of this encounter
--- OUTSIDE RECORDS SUMMARY | 2024-12-05 14:45 | XMS_ITS | Encounter Summary ---
[id number] [address] [place] [address] Care Team Providers Care Frit Mixer Name Role Phone Shirin Tellez APRN-RAW STOCK MACHINE FEEDER Primary Care Provider Encounter Details Date Type Department Care Team (Late Contact Info) Description 06/25/2020 Telephone [facility] [address] [place] [address] Leeann Simeon CNA Social History Tobacco Use Types Packs/Day Years [...] Upcoming Encounters Date Type Department Care Team ([facility] Contact Info) Description 12/12/2024 8:00 AM EDT Office Visit [facility] Department of [facility] [address] [place] [address] [address] [place] [phone] Alisia Arriola PA [address] [facility] [place] [phone] 02/12/2025 8:15 AM EDT Office Visit [facility] [address] [place] [phone] Luz Montalvo MD [address] [place] [address] 2025 8:00 AM EST Office Visit [facility] [address] [place] [address] [address] [place] [phone] Shirin Tellez, PRODUCTION INSPECTOR-RAW STOCK MACHINE FEEDER [address] [place] [address] documented as of this encounter Visit Diagnoses Not on filedocumented in this encounter Additional Health Concerns Infection Onset Date Last Indicated Resolved Time COVID-19 Rule-Out 03/06/2023 03/06/2023 03/06/2023 11:33 AM EDT COVID-19 Positive 03/06/2023 03/06/2023 03/27/2023 11:12 PM EDT Assessment Noted Time PHQ-9 Depression Total Score: 0 06/17/20 10:43 AM EST A Body Mass Index follow-up plan has been documented for the patient 06/17/2020 11:15 AM EST documented as of this encounter Care Teams Frit Mixer Relationship Specialty Start Date End Date Shirin Tellez APRN-RAW STOCK MACHINE FEEDER [facility] [place] [address] PCP - General Family Medicine 06/17/20 documented as of this encounter
--- OUTSIDE RECORDS SUMMARY | 2024-12-05 14:45 | XMS_ITS | Encounter Summary ---
Author Organization [facility] [employer] s tem Address [facility] [id number] [address] [place] [address] Care Team Providers Care Hydrator Operator Name Role Phone Shirin Tellez APRN-PLY BANDER Primary Care Provider Reason for Visit * Reason Onset Date Comments Schd appt 07/21/2021 Encounter Details Date Type Department Care Team (Late st Contact Info) Description 07/21/2021 Telephone [facility] [address] [place] [address] Prema Cameron Schd appt Social History Tobacco Use Types Packs/Day Years [...] or suspected to have Coronavirus / COVID-19? No / Unsure 07/22/2021 9:12 AM EST documented as of this encounter Miscellaneous Notes * Telephone Encounter - Prema Cameron - 07/21/2021 11:14 AM EST Received new patient referral. Please call patient to schedule a new patient appointment for Dizziness R53.1 (ICD-10-CM) - Weakness R51.9 (ICD-10-CM) - Aching headache Please make sure to verify patient insurance. * Telephone Encounter - Candi Witt - 07/21/2021 11:14 AM EST 1st attempt to schedule, left voicemail * Telephone Encounter - Prema Cameron - 07/21/2021 11:14 AM EST Please try to call this patient again. * Telephone Encounter - Candi Witt - 07/21/2021 11:14 AM EST Second attempt made to schedule patient- left voicemail documented in this encounter Plan of Treatment Upcoming Encounters Date Type Department Care Team (Late st Contact Info) Description 12/12/2024 8:00 AM EDT Office Visit [facility] Department of [address] [phone] [place] [address] [place] [address] [address] [place] [phone] 02/12/2025 8:15 AM EDT Office Visit [facility] [address] [place] [phone] Luz Montalvo MD [address] [place] [address] 2025 8:00 AM EST Office Visit [facility] [address] [facility] [address] [place] [phone] Shirin Tellez, DEREK-MOHINDER [address] [place] [address] documented as of this encounter Visit Diagnoses Not on filedocumented in this encounter Additional Health Concerns Infection Onset Date Last Indicated Resolved Time COVID-19 Rule-Out 03/06/2023 03/06/2023 03/06/2023 11:33 AM EDT COVID-19 Positive 03/06/2023 03/06/2023 03/27/2023 11:12 PM EDT Assessment Noted Time PHQ-9 Depression Total Score: 0 07/18/19 22 10:51 AM EST A Body Mass Index follow-up plan has been documented for the patient 07/18/2021 11:22 AM EST documented as of this encounter Care Teams Hydrator Operator Relationship Specialty Start Date End Date Shirin Tellez, PEG [address] [place] [address] PCP - General Family Medicine 06/17/20 documented as of this encounter
--- OUTSIDE RECORDS SUMMARY | 2024-12-05 14:45 | XMS_ITS | Clinical Summary ---
Author Organization [facility]autam [facility] Address [address] [place] [address] Care Team Providers Care Automatic Die Cutting Machine Operator Name Role Phone Shirin Tellez OCCUPATIONAL HEALTH RN - TEAM ASSEMBLY LINE MACHINE OPERATOR Primary Care Provid er Social History Tobacco Use Types Packs/Day Years Used Date Smoking Tobacco: Never Assessed Comments Unknown Sex and Gender Information Value Date Recorded Sex Assigned at Not on file Legal Sex Female 9:37 PM EST Gender Identity Not on file Sexual Orientation Not on file Plan of Treatment Not on file Insurance [employer] Care Teams Automatic Die Cutting Machine Operator Relationship Specialty Start Date End Date Shirin Tellez APRN - CNP PCP - General Internal Medicine 06/17/20
--- OUTSIDE RECORDS SUMMARY | 2024-12-05 14:45 | XMS_ITS | Encounter Summary ---
Author Organization [facility] tem Address [facility] [place]-[id number] [address] [place] [address] Care Team Providers Care Billing And Quality Technician Name Role Phone Shirin Tellez REFRIGERATION LEAD-CARGO WORKER Primary Care Provider Encounter Details Date Type Department Care Team (Late st Contact Info) Description 10/20/2021 Orders Only [facility] - [facility] [address] [place] [address], [address] [place] [address] Kelly Young, REFRIGERATION LEAD-CARGO WORKER [address] [place] [address] [address] [place] [address] Social History Tobacco Use Types Packs/Day Years [...] Department of [facility] [address] [place] [address] [address] [place] [address] Alisia Arriola PA [address] [phone] 02/12/2025 8:15 AM EDT Office Visit [facility] [address] [place] [phone] Luz Montalvo MD [address] [place] [address] 2025 8:00 AM EST Office Visit [facility] [address] [place] [address] [address] [place] [phone] Shirin Tellez APRN-CARGO WORKER [address] [place] [phone] documented as of this encounter Procedures Procedure Name Priority Date/Time Associated Diagnosis Comments COMPREHENSIVE HEARING TEST Routine 10/20/2021 7:18 AM EDT documented in this encounter Results * Comprehensive hearing test (10/20/2021 7:18 AM EDT) us Kelly Young APRN-CARGO WORKER [facility] [place] Final Result MANUALLY TRANSCRIBED RESULTS documented in [...] documented as of this encounter Care Teams Billing And Quality Technician Relationship Specialty Start Date End Date Shirin Tellez, REFRIGERATION LEAD-CARGO WORKER [facility] [place] [address] PCP - General Family Medicine 06/17/20 documented as of this encounter
--- OUTSIDE RECORDS SUMMARY | 2024-12-05 14:45 | XMS_ITS | Encounter Summary ---
Author Organization [facility] tem Address [facility]-[id number] [address] [place] [address] Care Team Providers Care Stitch Burnisher Name Role Phone Shirin Tellez APRN-INFORMATION TECHNOLOGY INTERNSHIP Primary Care Provider Reason for Visit * Reason Onset Date Comments work note 06/10/2020 Encounter Details Date Type Department Care Team (Late st Contact Info) Description 06/10/[address] [facility] [address] [place] [phone] Arin Cuellar CMA work note Social History Tobacco Use Types Packs/Day Years [...] Less than monthly PHQ-2 Answer Date Recorded PHQ-2 Score 0 06/06/2020 Childcare Answer Date Recorded Childcare Unknown 11/30/2018 [...] suspected to have Coronavirus / COVID-19? Yes 06/04/2020 4:09 PM EST documented as of this encounter Miscellaneous Notes * Telephone Encounter - Arin Cuellar CMA - 06/10/2020 11:36 AM EST Patient called and asked if her letter for work can be changed. She had a telephone visit on 06/06/20 with Kaveh. She said it should have her going back to work in 06/16/2020. Her office fax number is [phone]. Arin Cuellar CMA 06/10/20 1139 * Telephone Encounter - PEG Chadwick - 06/10/2020 11:36 AM EST Please fax over for the patient to notify them that we faxed it. * Telephone Encounter - Eliza Maya - 06/10/2020 11:36 AM EST Patient has been notified documented in this encounter Plan of Treatment Upcoming Encounters Date Type Department Care Team (Late st Contact Info) Description 12/12/2024 8:00 AM EDT Office Visit [facility] Department of [address] [phone] Alisia Arriola PA [address] [place] [phone] 02/12/2025 8:15 AM EDT Office Visit [facility] [address] [place] [phone] Luz Montalvo MD [address] [place] [phone] 8:00 AM EST Office Visit [facility] [address] [place] [phone] Shirin Tellez, DEREK-MOHINDER [address] [place] [address] documented as of this encounter Visit Diagnoses Not on filedocumented in this encounter Additional Health Concerns Infection Onset Date Last Indicated Resolved Time COVID-19 Rule-Out 03/06/2023 03/06/2023 03/06/2023 11:33 AM EDT COVID-19 Positive 03/06/2023 03/06/2023 03/27/2023 11:12 PM EDT Assessment Noted Time PHQ-9 Depression Total Score: 0 06/06/20 20 2:45 PM EST documented as of this encounter Care Teams Stitch Burnisher Relationship Specialty Start Date End Date Shirin Tellez, PEG [address] [place] [address] PCP - General Family Medicine 06/17/20 documented as of this encounter
--- OUTSIDE RECORDS SUMMARY | 2024-12-05 14:45 | XMS_ITS | Encounter Summary ---
Author Organization [facility] tem Address [facility]-[id number] [address] [place] [address] Care Team Providers Care Wind Farm Electrical Systems Designer Name Role Phone Shirin Tellez APRN-CHAIN SPLITTER Primary Care Provider Reason for Visit * Reason Comments Med Refill Encounter Details Date Type Department Care Team (Late Contact Info) Description 05/18/2016 Refill [facility] [address] [place] [address] [address] [place] [phone] Emerson Kurtz MD [address] [place] [address] Social History Tobacco Use Types Packs/Day Years Used Date Smoking Tobacco: Never Smokeless Tobacco: Never Alcohol Use Standard Drinks/Week Comments No 0 (1 standard drink = 0.6 oz pur e alcohol) Comments No Sex and Gender Information Value Date Recorded Sex Assigned at Not on file Legal Sex Female 9:59 PM EDT Gender Identity Not on file Sexual Orientation Not on file documented as of this encounter Plan of Treatment Upcoming Encounters Date Type Department Care Team (Late Contact Info) Description 12/12/2024 8:00 AM EDT Office Visit [facility] Department of [address] [phone] [place] [address] [place] [phone] 02/12/2025 8:15 AM EDT Office Visit [facility] [address] [place] [phone] Luz Montalvo MD [address] [place] [address] 2025 8:00 AM EST Office Visit [facility] [address] [facility] [address] [place] [phone] Shirin Tellez, ENGINEERING ADMINISTRATOR-CHAIN SPLITTER [address] [place] [address] documented as of this encounter Visit Diagnoses Not on filedocumented in this encounter Additional Health Concerns Infection Onset Date Last Indicated Resolved Time COVID-19 Rule-Out 09/19/2019 09/19/2019 09/29/2019 1:49 PM EDT COVID-19 Rule-Out 03/06/2023 03/06/2023 03/06/2023 11:33 AM EDT COVID-19 Positive 03/06/2023 03/06/2023 03/27/2023 11:12 PM EDT documented as of this encounter Care Teams Wind Farm Electrical Systems Designer Relationship Specialty Start Date End Date Shirin Tellez, ENGINEERING ADMINISTRATOR-CHAIN SPLITTER [address] [place] [address] PCP - General Family Medicine 06/17/20 documented as of this encounter
--- OUTSIDE RECORDS SUMMARY | 2024-12-05 14:45 | XMS_ITS | Encounter Summary ---
Author Organization [facility] tem Address [id number] [address] [place] [address] Care Team Providers Care Vp Account Director Name Role Phone Shirin Tellez APRN-MOHINDER Primary Care Provider Reason for Visit * Reason Comments Med Refill Encounter Details Date Type Department Care Team (Late st Contact Info) Description 01/10/2024 Refill [facility] [address] [place] [phone] Alisia Arriola PA [address] [facility] [address] [place] [phone] Fibromyalgia Social History Tobacco Use Types [...] Visit [facility] Department of [address] [phone] Alisia Arriola PA [address] [place] [phone] 02/12/2025 8:15 AM EDT Office Visit [facility] [address] [place] [phone] Luz Montalvo MD [address] [place] [phone] 8:00 AM EST Office Visit [facility] [address] [place] [address] [address] [place] [phone] Shirin Tellez, CHEMICAL ECONOMIST-POWER LINEMAN TECHNICIAN [address] [place], [place] [phone] documented as of this encounter Visit Diagnoses Diagnosis Fibromyalgia Unspecified myalgia and myositis documented in this encounter Additional Health Concerns Assessment Noted Time PHQ-9 Depression Total Score: 0 09/01/19 24 2:50 PM EDT A Body Mass Index follow-up plan has been documented for the patient 07/27/2023 2:47 PM EST documented as of this encounter Care Teams Vp Account Director Relationship Specialty Start Date End Date Shirin Tellez, CHEMICAL ECONOMIST-POWER LINEMAN TECHNICIAN [address] [place] [phone] PCP - General Family Medicine 06/17/20 documented as of this encounter
--- OUTSIDE RECORDS SUMMARY | 2024-12-05 14:45 | XMS_ITS | Encounter Summary ---
Author Organization [facility] tem Address [facility]-[id number] [address] [place] [address] Care Team Providers Care Generator Rebuilder Name Role Phone Shirin Tellez APRN-SENIOR RISK ANALYST Primary Care Provider Encounter Details Date Type Department Care Team (Late st Contact Info) Description 03/22/2023 Orders Only [facility] [address] [place] [phone] Leeann Chung Urinary frequency; Nocturia; Difficulty urinating Social History Tobacco Use Types Packs/Day Years [...] PHQ-2 Answer Date Recorded Total Score 0 01/08/2023 PRAPARE - Transportation Answer Date Re corded [...] Office Visit [facility] Department of [address] [place] [address] Alisia Arriola PA [address] [place], [place] [phone] [place] [phone] 02/12/2025 8:15 AM EDT Office Visit [facility] [address] [place] [phone] Luz Montalvo MD [address] [place] [phone] 8:00 AM EST Office Visit [facility] [address] [place] [address] [address] [place] [phone] Shirin Tellez, LIME VAT TENDER-SENIOR RISK ANALYST [address] [place] [phone] documented as of this encounter Procedures Procedure Name Priority Date/Time Associated Diagnosis Comments CYSTOMETROGRAM Routine 03/22/2023 Urinary frequency Nocturia Difficulty urinating documented in this encounter Results * Cystometrogram (03/22/2023) 03/22/2023 us Luz White MD PROCEDURE ORDERABLES Final Result MANUALLY TRANSCRIBED RESULTS documented in this encounter Visit Diagnoses Diagnosis Urinary frequency Nocturia Difficulty urinating Other symptoms involving urinary system documented in this encounter Additional Health Concerns Infection Onset Date Last Indicated Resolved Time COVID-19 Positive 03/06/2023 03/06/2023 03/27/2023 11:12 PM EDT Assessment Noted Time PHQ-9 Depression Total Score: 0 01/09/20 23 11:03 AM EDT A Body Mass Index follow-up plan has been documented for the patient 01/08/2023 4:41 PM EDT documented as of this encounter Care Teams Generator Rebuilder Relationship Specialty Start Date End Date Shirin Tellez, LIME VAT TENDER-SENIOR RISK ANALYST [address] [place] [phone] PCP - General Family Medicine 06/17/20 documented as of this encounter
[2024-12-05 15:01] LABS: Bilirubin Urine NEGATIVE (NEGATIVE); Blood Urine NEGATIVE (NEGATIVE); Clarity Urine CLEAR (CLEAR); Color Urine YELLOW (YELLOW); Glucose Urine UA NEGATIVE (NEGATIVE); Ketones Urine NEGATIVE (NEGATIVE); Leukocyte Esterase Urine NEGATIVE (NEGATIVE); Nitrite Urine NEGATIVE (NEGATIVE); Protein Urine NEGATIVE (NEG/TRACE); Urobilinogen Urine 0.2 EU/dL (0.2-1.0)
== END 2024-12-05 14:37 | disposition home or self-care (01) ==
PROVIDERS: PCP Nurse Practitioner; Visit Provider Registered Nurse
DX: R42 Dizziness and giddiness (principal); R10.31 Right lower quadrant pain
CPT/HCPCS: 81003

== ENCOUNTER 2025-02-07 10:44 | Emergency (ER) | payer OTHER, SELFPAY ==
[2025-02-07 10:51] VITALS: BP 173/84; PULSE 83; TEMP 36.9; O2SAT 97; BMI 27.6
[2025-02-07 10:58] VITALS: O2SAT 96
[2025-02-07 11:00] VITALS: BP 138/80; PULSE 66; O2SAT 97
--- NOTE | 2025-02-07 11:06 | ECG_ITS ---
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 Measurements Intervals [place] Rate: 64 P: 23 UT: 140 QRS: 27 QRSD: 76 T: 18 QT: 416 QTc: 426 Interpretive Statements 1100 Sinus rhythm 8102 Low QRS voltage in chest leads 9120 atypical ECG No previous ECG available for comparison Electronically Signed On 02-07-2025 18:22:54 EDT by TYREL OROZCO M.D.
--- NOTE | 2025-02-07 11:06 | XR_ITS ---
The [address] [address] Patient Name: SEVERO CALDWELL MRN: [id number] date: 1960 Sex: F Assigned Patient Location: ER Current Patient Location: ER Accession/Order Number: [id number] Exam Date: 02/07/2025 12:16 Report Date: 02/07/2025 12:16 At the request of: SOLANGE DALY MD Procedure: XR chest 1V PA CHEST: CLINICAL HISTORY: sob COMPARISON: None Unremarkable cardiomediastinal. Lungs clear. No effusion or pneumothorax. XR/XR chest 1V IMPRESSION: Negative acute pleural-parenchymal disease. Impression dictated by: Jacek Castaneda M.D. 02/07/2025 12:16 PM Dictation Location: [place] [address] Electronically authenticated by: [id number] Y Date: 02/07/2025 12:16
[2025-02-07 11:27] VITALS: PULSE 64
[2025-02-07 11:29] LABS: Hematocrit 33.0 % (36.0-48.0); Hemoglobin 10.8 g/dL (12.0-16.0); Immature Granulocytes Abs Auto 0.03 10^3/uL (0.00-0.03); Immature Granulocytes Pct Auto 0.4 % (0.0-0.5); Lymphocytes Absolute Auto 2.6 10^3/uL (1.2-3.8); Mean Corpuscular HGB Conc 32.7 g/dL (29.9-35.2); Mean Corpuscular Hemoglobin 21.3 pg (26.7-34.0); Mean Corpuscular Volume 65.2 fL (81.0-99.0); Platelet Count 269 10^3/uL (150-450); Red Blood Count 5.06 10^6/uL (4.20-5.40); White Blood Count 7.9 10^3/uL (4.0-11.0)
[2025-02-07 11:30] VITALS: BP 120/75; PULSE 59; O2SAT 96
[2025-02-07 11:44] LABS: SARS-CoV-2 Ag NEGATIVE (NEGATIVE)
[2025-02-07 11:47] LABS: Alanine Aminotransferase 31 U/L (14-59); Albumin Globulin Ratio 1.2; Albumin Level 3.6 g/dL (3.4-5.0); Alkaline Phosphatase 90 U/L (46-116); Anion Gap 9.0; Aspartate Amino Transferase 24 U/L (15-37); Blood Urea Nitrogen 11.0 mg/dL (7.0-18.0); Calcium 8.2 mg/dL (8.5-10.1); Carbon Dioxide 29.6 mmol/L (21.0-32.0); Chloride 108 mmol/L (98-107); Estimated GFR (African America >60 (>=60 mL/min/1.73m^2); Estimated GFR (Non-African Ame >60 (>=60 mL/min/1.73m^2); Globulin 3.1 g/dL; Glucose 102 mg/dL (74-106); Potassium 3.6 mmol/L (3.5-5.1); Sodium 143 mmol/L (136-145); Total Protein 6.7 g/dL (6.4-8.2)
[2025-02-07 11:52] LABS: INR 0.95; Prothrombin Time 10.1 sec (9.0-11.6)
[2025-02-07 12:00] VITALS: BP 133/80; PULSE 63; O2SAT 96
--- NOTE | 2025-02-07 12:32 | ED_ITS ---
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 The patient mentioned that having sometimes chest pain in the retrosternal that comes and goes although she does not have it at the moment. She also menti oned having right lower quadrant pain that comes and goes sometimes and also associated with some loose stool for the last few days. The patient had no runny nose no coughing no nausea no vomiting Just feeling tired When this feeling started few days ago days it was not associated with any exertion and no sweating or dizziness Related Data Home Medications ?Medication ?Instructions ?Recorded ?Confirmed estradiol 1 mg-progesterone 100 mg 1 cap PO DAILY 01/2002/07/25 capsule solifenacin 5 mg tablet (Vesicare) 5 mg PO DAILY 02/0702/07/25 Allergies Allergy/AdvReac Type Severity Reaction Status Date / Time No Known Drug Allergies Allergy Verified 02/07/25 10:49 Opioid HPI Opioid Management Most Recent Opioid Data: Last Pain Scale 3 Today, 10:51 Review of Systems ROS Status of ROS 10 or more systems reviewed and unremark able except as noted in history and below PFSH PFSH Social History Little interest or pleasure in doing things: not at all Feeling down, depressed, or hopeless: not at all Exam Narrative Exam Narrative: Nurses notes and vital signs reviewed and patient is not hypoxic. General: Well-appearing and in no apparent distress. Skin: Warm, dry, no pallor noted. No rash. Head: Normocephalic, atraumatic. Neck: Supple, non-tender. Eye: Pupils are equal, round and EOMI. No scleral icterus. Ears, Nose, Mouth, and Throat: TM are clear, no nasal mucosal hypertrophy. Oral mucosa is moist, no posterior oropharynx erythema, uvula is mid-line Cardiovascular: Regular Rate and Rhythm without murmur, gallop or rub. Respiratory: No accessory muscle use or respiratory distress. Lungs are clear to auscultation, no wheezing, rales or rhonchi Chest Wall: no tenderness Back: No midline thoracic or lumbar vertebral tenderness. No CVA tenderness Musculoskeletal: normal ROM, no calf or popliteal tenderness, no lower extremity edema/swelling GI: Abdomen is soft, non-distended. Normal bowel sounds. No masses appreciated. No tenderness to palpation. No rebound, guarding, or rigidity noted. Neurological: A&O x4. No cranial nerve dysfunction observed. No truncal ataxia. Moves all extremities. Sensation intact. Psychiatric: Cooperative and interactive. Normal mood and affect. Constitutional Vital Signs, click to edit/add: Last Vital Signs Temp 98.5 F 02/07/25 10:51 Pulse 63 02/07/25 12:00 Resp 15 02/07/25 12:00 BP 133/80 02/07/25 12:00 Pulse Ox 96 02/07/25 12:00 O2 Del Method Room Air 02/07/25 10:51 Course Vital Signs Vital signs: Vital Signs Temperature 98.5 F 02/07/25 10:51 Pulse Rate 83 02/07/25 10:51 Respiratory Rate 18 02/07/25 10:51 Blood Pressure 173/84 H 02/07/25 10:51 Pulse Oximetry 97 02/07/25 10:51 Oxygen Delivery Method Room Air 02/07/25 10:51 Temperature 98.5 F 02/07/25 10:51 Pulse Rate 63 02/07/25 12:00 Respiratory Rate 15 02/07/25 12:00 Blood Pressure 133/80 02/07/25 12:00 Pulse Oximetry 96 02/07/25 12:00 Oxygen Delivery Method Room Air 02/07/25 10:51 Medical Decision Making [facility] Narrative Medical decision making narrative: The patient EKG showing sinus rhythm with a heart rate of [address] elevation or depression Most of the symptoms the patient mentioned were not actually active except for the generalized weakness and she was tested for COVID and flu and it was negative CBC and chemistry showed no acute pathology She did not have any chest pain in the ER and her EKG was showing normal sinus rhythm with no ST changes or any concern for coronary artery disease The patient troponin was negative and her chest x-ray was within normal She also had a history of chronic anemia due to sickle cell trait and that was found in the blood workup Right now the patient will just rest for the next 2 days as she is to come back to the ER in case of any new symptoms or concerns her presentation is mostly could be secondary to viral illness prodrome The patient is to follow up with primary care physician in next 2-3 days or to return to the emergency department should any of the signs or symptoms worsen or new symptoms develop. The patient agrees with the following Diagnosis and Treatment plan and the patient will be discharged home. Lab Data Labs: Lab Results 02/07/25 02/07/25 Range/Units 11:15 11:20 WBC 7.9 (4.0-11.0) 10^3/uL RBC 5.06 (4.20-5.40) 10^6/uL Hgb 10.8 L (12.0-16.0) g/dL Hct 33.0 L (36.0-48.0) % MCV 65.2 L (81.0-99.0) fL MCH 21.3 L (26.7-34.0) pg MCHC 32.7 (29.9-35.2) g/dL RDW 16.8 H (11.0-15.0) % Plt Count 269 (150-450) 10^3/uL MPV 10.7 (9.5-13.5) fL Neut % (Auto) 56.6 (43.0-75.0) % Lymph % (Auto) 32.4 (20.5-60.0) % Webster % (Auto) 8.3 (1.7-12.0) % Eos % (Auto) 1.5 (0.9-7.0) % Baso % (Auto) 0.8 (0.2-2.0) % Neut # (Auto) 4.5 (1.4-6.5) 10^3/uL Lymph # (Auto) 2.6 (1.2-3.8) 10^3/uL Webster # (Auto) 0.7 (0.3-0.8) 10^3/uL Eos # (Auto) 0.1 (0.0-0.7) 10^3/uL Baso # (Auto) 0.1 (0.0-0.1) 10^3/uL Abs Immat Gran (auto) 0.03 (0.00-0.03) 10^3/uL Imm/Tot Granulo (auto) 0.4 (0.0-0.5) % PT 10.1 (9.0-11.6) sec INR 0.95 Sodium 143 (136-145) mmol/L Potassium 3.6 (3.5-5.1) mmol/L Chloride 108 H (98-107) mmol/L Carbon Dioxide 29.6 (21.0-32.0) mmol/L Anion Gap 9.0 BUN 11.0 (7.0-18.0) mg/dL Creatinine 0.87 (0.55-1.02) mg/dL Est GFR ( Amer) >60 (>=60 mL/min/1.73m^2) Est GFR (Non-Af Amer) >60 (>=60 mL/min/1.73m^2) BUN/Creatinine Ratio 12.6 Glucose 102 (74-106) mg/dL Calcium 8.2 L (8.5-10.1) mg/dL Total Bilirubin 0.5 (0.2-1.0) mg/dL AST 24 (15-37) U/L ALT 31 (14-59) U/L Alkaline Phosphatase 90 (46-116) U/L Troponin I High Sens <4.0 L (4.0-51.3) pg/mL Total Protein 6.7 (6.4-8.2) g/dL Albumin 3.6 (3.4-5.0) g/dL Globulin 3.1 g/dL Albumin/Globulin Ratio 1.2 Influenza Type A Ag Negative Influenza Type B Ag Negative SARS-CoV-2 Ag (CV2AG) Negative (NEGATIVE) Discharge Plan Discharge Chief Complaint: Shortness of Breath/Dyspnea Clinical Impression: Generalized weakness Patient Disposition: Home, Self-Care Time of Disposition Decision: 12:33 Condition: Good Prescriptions / Home Meds: No Action solifenacin [Vesicare] 5 mg tablet 5 mg PO DAILY estradiol-progesterone 1-100 mg capsule 1 cap PO DAILY Print Language: Romanian Instructions: Viral Syndrome (ED) Referrals: KONRAD GONZALES, MOHINDER [Primary Care Provider] - 1 week Discharge Date/Time: 02/07/25 12:42
== END 2025-02-07 12:42 | disposition home or self-care (01) ==
PROVIDERS: Emergency Provider Emergency Medicine; PCP Nurse Practitioner
DX: R53.1 Weakness (principal); R06.02 Shortness of breath
CPT/HCPCS: 36415; 71045; 80053; 84484; 85025; 85610; 87804; 87811; 93005; 99285